=== PATIENT | male | born 1985 | race Caucasian/White ===

== ENCOUNTER 2018-07-27 12:12 | Emergency (ER) | payer SELFPAY ==
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
[2018-07-27] MEDS ORDERED: Ketorolac Tromethamine 30 MG/ML VIAL ONE (14:07)
== END 2018-07-27 14:25 | disposition home or self-care (01) ==
LOC: ERS 12:12
DX: S29.011A Strain of muscle and tendon of front wall of thorax, initial encounter (principal); F17.210 Nicotine dependence, cigarettes, uncomplicated; V89.2XXA Person injured in unspecified motor-vehicle accident, traffic, initial encounter
CPT/HCPCS: 71046; 96372; J1885

== ENCOUNTER 2018-10-15 11:07 | Emergency (ER) | payer SELFPAY ==
[2018-10-15] MEDS ORDERED: Adacel (T-DAP) 0.5 ML SYRINGE ONE (11:41)
[2018-10-15] MEDS ORDERED: Lidocaine 1% w/Epinephrine 1:100K 20 ML VIAL ONE (11:41)
--- NOTE | 2018-10-15 12:05 | RAD ---
LEFT KNEE 4 VIEWS: Date: 10/15/18 HISTORY: Laceration. COMPARISON: None. FINDINGS: Soft tissue laceration to anterior thigh with overlying bandage. No fracture or malalignment. No sign ificant joint effusion. No displaced fracture. No radiopaque foreign object. IMPRESSION: Soft tissue laceration without acute osseous abnormality. POS: CET
[2018-10-15] MEDS ORDERED: Bacitracin 1 PK ONE (12:41)
== END 2018-10-15 12:47 | disposition home or self-care (01) ==
LOC: ERS 11:07
DX: S71.112A Laceration without foreign body, left thigh, initial encounter (principal); Z87.891 Personal history of nicotine dependence; W27.0XXA Contact with workbench tool, initial encounter
CPT/HCPCS: 12002; 90471; 90715; J2001